=== PATIENT | female | born 1955 | race Caucasian/White ===

== ENCOUNTER → 2020-05-04 13:53 | Outpatient (CLI) | payer OTHER, SELFPAY ==
--- NOTE | ~2020-05-04 | MR_ITS ---
EXAMINATION: MR shoulder LT wo con DATE: 05/04/2020 15:04 INDICATION: Left shoulder pain and limited range of motion TECHNIQUE: Magnetic resonance imaging (MRI) of the left shoulder was performed without intravenous co ntrast. Sequences included axial PD-weighted FS FSE, coronal oblique PD-weighted FS FSE, coronal obli que T2-weighted FS FSE, sagittal PD-weighted FS FSE, and sagittal T1-weighted SE. COMPARISON: None. FINDINGS: Coracoacromial arch: The acromion undersurface is curved in morphology (type II). The coracoacromial ligament is normal. M ild to moderate acromioclavicular osteoarthritis with mild subarticular cystic change at the lateral head of the clavicle. Rotator cuff: Mild supraspinatus and infraspinatus tendinopathy. Tiny linear low signal intensity intrasubstance te ar along the anterior middle facet footplate of the conjoined portion of the supraspinatus and infras pinatus tendons which results in subtle concavity to the contour of the bursal surface. The region of increased signal is noted close seen on the axial images and is less well-defined measuring approxim ately 3 mm AP on the sagittal images. The subscapularis and teres minor tendons are normal. Normal ro tator cuff muscle bulk and signal. Biceps tendon, glenoid labrum and glenohumeral cartilage: Long head of the biceps tendon is normal. Advanced glenohumeral osteoarthritis with extensive full-th ickness cartilage loss and remodeling of significant portion of the articular surface of the medial s edda of the humeral head and central to posterior aspect of the glenoid. The latter results in approxi mately 20 degrees retroversion of the glenoid. There is diffuse degenerative tearing of the glenoid l abrum which is essentially absent inferiorly and with macerated appearance posteriorly. There are lar ge marginal osteophytes along the inferomedial aspect of the humeral head. Fluid: Small glenohumeral joint effusion with proportional extension of a small amount of fluid along the lo ng head biceps tendon sheath and deep subscapular recess. No loose osteochondral bodies. Small amount of fluid in the subacromial/subdeltoid bursa consistent with mild bursitis. Bones: No fracture or pathologic marrow replacing process. IMPRESSION: 1. Advanced left glenohumeral osteoarthritis with diffuse labral degeneration and likely reactive sma ll joint effusion. 2. Mild supraspinatus and infraspinatus tendinopathy with small mild intrasubstance tear at the footp late of the conjoined portion of the tendons. 3. Mild to moderate acromioclavicular osteoarthritis. 4. Mild subacromial/subdeltoid bursitis. Reviewed, dictated and finalized at location A. IMPRESSION: 1. Advanced left glenohumeral osteoarthritis with diffuse labral degeneration a nd likely reactive small joint effusion. 2. Mild supraspinatus and infraspinatus tendinopathy with small mild intrasubst ance tear at the footplate of the conjoined portion of the tendons. 3. Mild to moderate acromioclavicular osteoarthritis. 4. Mild subacromial/subdeltoid bursitis.
== END ==
DX: M19.012 Primary osteoarthritis, left shoulder (principal); M75.52 Bursitis of left shoulder
CPT/HCPCS: 73221

== ENCOUNTER 2025-06-16 21:36 | Emergency (ER) | payer MEDICARE, SELFPAY ==
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
[2025-06-16 21:42] VITALS: BP 155/103; PULSE 75; RESP 18; TEMP 36.9; O2SAT 100
--- OUTSIDE RECORDS SUMMARY | 2025-06-16 22:48 | XMS_ITS | Clinical Summary ---
Author Organization [facility] Address [address] [place] [address] Care Team Providers Care Behavioral Consultant Name Role Phone José Antonio Cardona DO Primary Care Provider + Suzanne Carroll MD Unavailable [phone] Maritza Lyn MD Unavailable [phone] Allergies No known active allergies Medications cetirizine (ZyrTEC) 10 mg tablet Take 1 tablet (10 mg total) by mouth daily Active naproxen (NAPROSYN) 375 mg tablet Take 220 mg by mouth every 8 (eight) hours as needed Active diphenhydrAMINE (BENADRYL) 25 mg capsule Take 1 tablet/capsule (25 mg total) by mouth nightly as needed Active evening primrose oil 500 mg capsule Take 6.2 capsules (3,100 mg total) by mouth daily Active cholecalciferol (VITAMIN D-3) 5,000 unit tablet Take 1 tablet (5,000 Units total) by mouth daily Active pyridoxine (VITAMIN B-6) 100 mg tablet Take 0.5 tablets (50 mg total) by mouth daily Active turmeric-turmeri c root extract 450-50 mg capsule Take 1 capsule by mouth daily Active buotgfdb-aswm-IT -calcium-mins 18 mg iron-400 mcg-500 mg Ca tablet Take 1 tablet by mouth daily Active triamcinolone (NASACORT) 55 mcg nasal inhaler Administer 2 sprays into each nostril daily Active famotidine (PEPCID) 10 mg tablet Take 1 tablet (10 mg total) by mouth nightly as needed Active sodium chloride (OCEAN) 0.65 % drops Administer 1 spray into affected nostril(s) as needed Active quercetin dihydrate, bulk, 100 % powder Take 1 tablet by mouth 2 (two) times a day Active vitamin E (AQUASOL E) 100 unit capsule Take 134 Units by mouth daily Active menthol 10 % cream Apply topically as needed Active vit C-s.fischer-celer y-grape sd [id number] mg capsule Take by mouth Activ e ALPRAZolam (XANAX) 0.5 mg tabletIndication s:Situational anxiety TAKE 1 TABLET BY MOUTH TWICE A DAY NEEDED FOR ANXIETY 60 tablet 5 3 Active guaiFENesin-pseu doephedrine (MUCINEX D) 600-60 mg per 12 hr tablet Take 1 tablet by mouth as needed Active lisinopril-hydro CHLOROthiazide (ZESTORETIC) 20-12.5 mg per tabletIndication s:Primary hypertension TAKE 1 TABLET BY MOUTH EVERY DAY 90 tablet 3 3 Active Additional Information Patient taking differently: 0.5 tablet, Reported on 10/18/2023 traMADoL (ULTRAM) 50 mg tabletIndication s:Chronic pain syndrome TAKE 1 TABLET (50 MG TOTAL) BY MOUTH EVERY 8 (EIGHT) HOURS NEEDED FOR PAIN. 60 tablet 1 3 Active nitroglycerin (NITROSTAT) 0.[address] 1 tablet (0.4 mg total) under the tongue every 5 (five) minutes as needed for chest pain May repeat dose q 5 min, up to 3 doses total 30 tablet 4 Active metoprolol XL (TOPROL-XL) 25 mg extended release tablet Take 1 tablet (25 mg total) by mouth daily 90 tablet 2 4 Active lisinopril-hydro CHLOROthiazide (ZESTORETIC) 20-25 mg per tablet Take 1 tablet by mouth daily 90 tablet 1 4 Active metoprolol tartrate (LOPRESSOR) 25 mg immediate release tablet Take 1 tablet (25 mg total) by mouth daily 90 tablet 1 4 Active aspirin 81 mg enteric coated tablet Take 1 tablet (81 mg total) by mouth daily 90 tablet 1 4 Active atorvastatin (LIPITOR) 40 mg tablet Take 1 tablet (40 mg total) by mouth daily 90 tablet 4 Active Active Problems Problem Noted Date Diagnosed Date IGT (impaired glucose tolerance) 12/16/2023 Abnormal stress test 10/18/2023 Mixed hyperlipidemia 10/18/2023 HAYWOOD (dyspnea on exertion) 08/12/2023 Abnormal EKG 08/12/2023 Preop cardiovascular exam 12/13/2022 Assessment & Plan (12/13/2022 2:46 PM CDT): meds reviewed and reconciled Will order a colonoscopy Morbid obesity with BMI of 40.0-44.9, adult 11/22 Assessment & Plan (03/06/2023 12:23 PM CDT): Patient has some sleep disturbance and possibly snoring not been checked for sleep apnea advised to have a sleep studies done Assessment & Plan (12/13/2022 2:46 PM CDT): Healthy diet S/P reverse total shoulder arthroplasty, right 0 03/27/2022 03/06/2023 Nontraumatic complete tear of right rotator cuff 03/15/2022 03/06/2023 Impingement syndrome of right shoulder 03/06/2023 Osteoarthritis of right acromioclavicular joint 01/23/2022 03/06/2023 Situational anxiety 08/02/2021 Overview (08/02/2021): Continue Xanax PRN Assessment & Plan (12/06/2021 5:04 PM CDT): Taking care of her mother Under a lot of stress Situational depression 08/02/2021 Overview (08/02/2021): New - recommended to see counselor/therapist. Printed list for patient of resources. Assessment & Plan (12/06/2021 5:04 PM CDT): Patient is well controlled. Continue current treatment. Iron deficiency anemia secon korin to inadequate dietary iron intake 07/12/2021 Assessment & Plan (12/06/2021 5:04 PM CDT): Check a cbc Iron level Anosmia 01/31/2021 Assessment & Plan (12/06/2021 5:04 PM CDT): Patient is well controlled. Continue current treatment. Osteoarthritis of left acromioclavicular joint 0 11/19/2019 Assessment & Plan (12/06/2021 5:06 PM CDT): Post op Sleep apnea 02/25/2019 Assessment & Plan (12/06/2021 5:05 PM CDT): Patient is well controlled. Continue current treatment. Assessment & Plan (02/25/2019 11:50 AM CDT): Patient is snoring needs to be checked for sleep apne Lipids abnormal 02/25/2019 Assessment & Plan (03/06/2023 12:23 PM CDT): Abnormal lipids patient to tolerating medications well no side effects advised to continue same and follow low-cholesterol diet Assessment & Plan (12/06/2021 5:05 PM CDT): Lipid and lft Assessment & Plan (02/25/2019 11:50 AM CDT): Abnormal lipids needs a strict good dietary control and medication. Primary osteoarthritis of left shoulder 02/18/20 19 Assessment & Plan (12/06/2021 5:05 PM CDT): Patient is well controlled. Continue current treatment. Spinal stenosis 02/17/2019 Assessment & Plan (12/06/2021 5:05 PM CDT): Patient is well controlled. Continue current treatment. HTN (hypertension) 01/02/2019 Assessment & Plan (03/06/2023 12:23 PM CDT): Longstanding history of hypertension which is under good control with the medication and salt restriction however lately patient is feeling dizzy would like to cut down lisinopril to half the dose and watch for any change in the symptoms and continue salt restricted diet Assessment & Plan (12/06/2021 5:05 PM CDT): Patient is well controlled. Continue current treatment. Assessment & Plan (08/02/2021 9:19 AM FIRST OFFICER): Stable, no changes. Continue current regimen Seeing cardiology Assessment & Plan (06/13/2020 3:07 PM CDT): Patient is well controlled. Continue current treatment. Assessment & Plan (06/01/2020 8:35 AM CDT): Patient is well controlled. Continue current treatment. Assessment & Plan (02/25/2019 11:50 AM CDT): Hypertension needs better control salt restriction more medicine watching calories Assessment & Plan (01/02/2019 11:12 AM CDT): Will recheck next week Family history of breast cancer 12/11/2011 Overview (01/02/2019): Daughter of Lydia Guerrier ( 02/11/37) who had T1aN0 triple negative in 2004 Last Assessment & Plan: mammo november Stress from parents Mom fx pelvis Assessment & Plan (12/06/2021 5:06 PM CDT): Check a mammogram GERD (gastroesophageal reflux disease) Resolved Problems Problem Noted Date Diagnosed Date Resolved Date Sinus drainage 12/13/2022 08/01/2023 Assessment & Plan (12/13/2022 2:54 PM CDT): Doxycycline 100 mg bid 10 days BMI 39.0-39.9,adult 12/06/2021 12/14/19 Assessment & Plan (12/06/2021 5:06 PM CDT): Continue healthy diet Regular exercise Iron deficiency anemia jade langley to inadequate dietary iron intake 07/12/2021 11/10/202 1 Upper respiratory infection 06/01/2020 08/02/2021 Assessment & Plan (06/13/2020 3:07 PM CDT): Feeling a lot better Still not smelling well Assessment & Plan (06/01/2020 8:34 AM CDT): covid test quarantine Abnormal EKG 01/09/2019 12/06/2021 Assessment & Plan (02/25/2019 11:50 AM CDT): LVH and left axis deviation Assessment & Plan (01/09/2019 12:31 PM CDT): Non specific changes Order a stress test See cardiology Arthritis 01/02/2019 12/06/2021 Overview (01/02/2019): both knees Annual physical exam 01/02/2019 03 020 Assessment & Plan (01/02/2019 10:51 AM CDT): Routine blood work Vertigo 01/02/2019 08/01/2023 Assessment & Plan (12/06/2021 5:06 PM CDT): Patient is well controlled. Continue current treatment. Assessment & Plan (01/09/2019 12:33 PM CDT): Still with issues May need ENT referral Assessment & Plan (01/02/2019 11:08 AM CDT): Labs ekg antivert 25 mg bid prn F/u next week Shoulder pain, left 01/02/2019 08/01/20 23 Assessment & Plan (01/09/2019 12:42 PM CDT): Awaiting results Refer to ortho Assessment & Plan (01/02/2019 11:07 AM CDT): X ray cxr Arm pain, left 01/02/2019 11/27/2019 Assessment & Plan (01/09/2019 12:34 PM CDT): Awaiting results of x ray Assessment & Plan (01/02/2019 11:07 AM CDT): X ray Class 2 severe obesity due t o excess calories with serious comorbidity and body mass index (BMI) of 39.0 to 39.9 in adult 03/18/2017 2 Immunizations Immunization Administration Dates Next Due Influenza, Quad, Adjuvantate d, Intramuscular 07/12/2021 Influenza, Quadrivalent, Hig h Dose, Preservative Free, Intrr 11/28/2022 Influenza, Unspecified 06/23/2020(Deferr ed: Patient Refused),06/23/2019(Deferred: Patient Refused) Fieldglass (J&J) SARS-CoV-2 Vaccination 11/25/2020 Moderna SARS-CoV-2 Monovalen t Vaccination (12+ YRS) 04/16/2022 Moderna Sars-cov-2 Monovalen t Booster Vaccination .25 Ml dose (12+ YRS) 04/17/2022 Pneumococcal Conjugate PCV 13 12/06/2021(Deferre d: Patient Refused) Pneumococcal Conjugate, Unspecified 12/06/2021(D eferred: Patient Refused) Pneumococcal Polysaccharide PPV23 12/06/2021 Surgical History Surgery Date Site/Laterality Comments KNEE SURGERY 09/23/2005 - 09/22/2006 Right CHOLECYSTECTOMY 09/23/1999 - 09/22/2000 TOTAL ABDOMINAL HYSTERECTOMY 09/23/1999 - 09/22/2000 DILATION AND CURETTAGE OF UTERUS 09/23/1978 - 09/22/1979 SHOULDER SURGERY 02/08/2021 TOTAL SHOULDER REPLACEMENT 03/28/2022 RIGHT REVERSE Medical History Medical History Date Comments Arm pain Hypertension Arm pain, left 01/02/2019 Spinal stenosis Allergic rhinitis Anxiety Heart disease GERD (gastroesophageal reflux disease) Sinusitis Tinnitus Degenerative arthritis of cervical spine Family History Medical History Relation Name Comments Diabetes Brother 1 Hypertension Brother 1 Hypertension Brother 2 Dementia Father Diabetes Father Heart disease Father Hypertension Father Prostate cancer Father No Known Problems Maternal Grandfather No Known Problems Maternal Grandmother Arthritis Mother Breast cancer Mother Dementia Mother Heart disease Mother Hypertension Mother Diabetes Other 1 Heart disease Other 2 Hypertension Other 3 Cancer Other 4 No Known Problems Paternal Grandfather No Known Problems Paternal Grandmother Relation Name Status Comments Brother 1 Alive Brother 2 Alive Father Alive Maternal Grandfather Maternal Grandmother Mother Alive Other 1 Other 2 Other 3 Other 4 Paternal Grandfather Paternal Grandmother Social History Tobacco Use Types Packs/Day Years Used Date Smoking Tobacco: Never Smokeless Tobacco: Never Tobacco Cessation:Counseling Given: Not Answered Alcohol Use Standard Drinks/Week Comments Yes 4 (1 standard drink = 0.6 oz pur e alcohol) OCC AUDIT-C Answer Date Recorded Q1: How often do you have a drink containing alc ohol? 2-4 times a month 10/30/2023 Q2: How many drinks containi ng alcohol do you have on a typical day when you are drinking? 1 or 2 10/30/2023 Q3: How often do you have si x or more drinks on one occasion? Never 10/30/2023 PHQ-2 Answer Date Recorded PHQ-2 Total Score (If total score is 3 or more points, staff should administer the PHQ-9) 0 12/13/2022 Personal Safety Answer Date Recorded Have you ever been in or are you currently in a harmful physical or emotional relationship or is someone making you feel afraid or unsafe? Denies 10/30/2023 Comments No Sex and Gender Information Value Date Recorded Sex Assigned at Not on file Legal Sex Female 1:54 AM FIRST OFFICER Gender Identity Not on file Sexual Orientation Not on file Obstetrics History Last Filed Vital Signs Vital Sign Reading Time Taken Comments Blood Pressure 122/78 12/16/2023 2:26 PM CDT Pulse 68 12/16/2023 2:26 PM CDT Temperature 36.7 C (98 F) 07/27/2023 6:57 PM CDT Respiratory Rate 16 12/16/2023 2:26 PM CDT Oxygen Saturation 92% 12/16/2023 2:26 PM CDT Inhaled Oxygen Concentration - - Weight 109 kg (240 lb 4.8 oz) 12/16/2023 2:26 PM CDT Height 160 cm (5' 3) 08/12/2023 1:06 PM FIRST OFFICER Body Mass Index 42.57 08/12/2023 1:06 PM FIRST OFFICER Plan of Treatment Health Maintenance Due Date Last Done Comments Colon Cancer Screening-Colonoscopy 1956 DTaP/Tdap/Td Vaccine (1 - Tdap) 1967 Hepatitis B Screening 1974 Zoster Vaccine (1 of 2) 2006 Pneumococcal vaccine 65+ (2 of 2 - PCV) 12/06/2022 12/06/2021 Depression Screening 12/14/2023 12/13/2022, 12/06/2021, 08/02/2021, Additional history exists Fall Risk Assessment 12/14/2023 12/13/2022, 12/06/2021, 01/09/2019, Additional history exists Well Visit 65+ 12/14/2023 12/13/2022, 12/06/2021 Osteoporosis Screening-Bone Density Scan 12/22/2023 12/21/2021, 12/21/2021 Breast Cancer Screening-Mammogram 10/07/2024 10/07/2023, 10/07/2023, 10/01/2022, Additional history exists Covid-19 Vaccine ( - 2024-2 6 season) 2025 04/17/2022, 04/16/2022, 11/25/2020 Influenza Vaccine (#1) 2025 11/28/2022, 2020 Hepatitis C Screening Completed 12/21/2021 Procedures Procedure Name Priority Date/Time Associated Diagnosis Comments HEPATITIS C ANTIBODY Routine 12/21/2021 10:18 AM CDT DEXA AXIAL SKELETON BONE DENSITY 1 OR MORE SITES Schedule Routine, Read Routine (OP Routine) 12/21/2021 9:56 AM CDT Asymptomatic postmenopausal status from Last 3 Months or Most Recently Relevant to Health Maintenance Results * Hepatitis C antibody (12/21/2021 10:18 AM CDT) Hep C Ab NON-REACTI VE NON-REACT MEGHANN [facility] SIGNAL TO CUT-OFF 0.01 <1.00 [facility] Comment: HCV antibody was non-reactive. There is no laboratory evidence of HCV infection. In most cases, no further action is required. However, if recent HCV exposure is suspected, a test for HCV RNA (test code 98030) is suggested. For additional information please refer to http://education.byUs.com/faq/ZOT01p1 (This link is being provided for informational/ educational purposes only.) 12/21/2021 10:1 8 AM CDT 12/21/2021 10:18 AM CDT Narrative [facility] - 12/22/2021 9:44 AM CDT FASTING:YES FASTING: YES José Antonio Cardona DO LAB MICROBIOLOGY - GENER AL ORDERABLES Final Result [facility] [address] [place] [address] * Dexa Axial Skeleton Bone Density 1 or 2 Site (12/21/2021 9:56 AM CDT) Anatomical Region Laterality Modality Body N/A Mammography 12/21/2021 10:0 1 AM CDT Narrative 12/21/2021 10:02 AM CDT EXAM DESCRIPTION: DEXA AXIAL SKELETON BONE DENSITY 1 OR MORE SITES REASON FOR STUDY: 66 year old female with given history of postmenopausal status. Charge Lpn/Model: barter.li A (S/N [id number]) CLINICAL INFORMATION: Current height: 64.5 inches Maximum height: 66 inches Weight: 230.8 pounds Risk factors: None reported COMPARISON: None available. FINDINGS: AP LUMBAR SPINE L1-L4: Total BMD is 1.161 g/cm2 T-score is 1.0 LEFT HIP: Total BMD is 0.802 g/cm2 T-score is -1.1 Femoral neck BMD is 0.754 g/cm2 T-score is -0.9 IMPRESSION: Low bone mass. Fracture risk assessment (FRAX): 10 year risk for a major osteoporotic fracture is 7.1 % 10 year risk for a hip fracture is 0.4 % The FRAX tool has not been validated in patients currently or previously treated with pharmacotherapy for osteoporosis. In such patients, clinical judgement must be exercised in interpreting FRAX scores as the fracture risk may be overestimated. REFERENCE: Bone mineral density: Normal (T-score above or = -1.0) Low bone mass (T-score between -1.0 and -2.5) replaces the previously used term osteopenia Osteoporosis (T-score = or below -2.5) Medical evaluation for secondary causes of low bone mineral density may be appropriate. FRAX is a World Health Organization validated fracture risk assessment tool that calculates a person's 10 year probability of a major osteoporosis related fracture and hip fracture. According to the National Osteoporosis Foundation guidelines, postmenopausal women and men age 50 or older with low bone mass and a 10 year probability of a major osteoporosis related fracture = or greater than 20% or a 10 year probability of a hip fracture = or greater than 3% should be considered for treatment. For further information, including treatment recommendations, please refer to the 2013 ISCD Official Positions (http://www.iscd.org) and the NOF's Clinician's Guide to Prevention and Treatment of Osteoporosis (http://www.nof.org/professionals/clinical-guidelines) THIS IS AN ELECTRONICALLY VERIFIED FINAL REPORT 12/21/2021 10:02 AM - Electronically signed by Jose Tolbert M.D. MD: Report ID: [id number] Reading Location: [place] [address] Procedure Note Jose Tolbert MD - 12/21/2021 EXAM DESCRIPTION: DEXA AXIAL SKELETON BONE DENSITY 1 OR MORE SITES REASON FOR STUDY: 66 year old female with given history of postmenopausal status. Charge Lpn/Model: barter.li A (S/N [id number]) CLINICAL INFORMATION: Current height: 64.5 inches Maximum height: 66 inches Weight: 230.8 pounds Risk factors: None reported COMPARISON: None available. FINDINGS: AP LUMBAR SPINE L1-L4: Total BMD is 1.161 g/cm2 T-score is 1.0 LEFT HIP: Total BMD is 0.802 g/cm2 T-score is -1.1 Femoral neck BMD is 0.754 g/cm2 T-score is -0.9 IMPRESSION: Low bone mass. Fracture risk assessment (FRAX): 10 year risk for a major osteoporotic fracture is 7.1 % 10 year risk for a hip fracture is 0.4 % The FRAX tool has not been validated in patients currently or previously treated with pharmacotherapy for osteoporosis. In such patients, clinical judgement must be exercised in interpreting FRAX scores as the fracturerisk may be overestimated. REFERENCE: Bone mineral density: Normal (T-score above or = -1.0) Low bone mass (T-score between -1.0 and -2.5) replaces thepreviously used term osteopenia Osteoporosis (T-score = or below -2.5) Medical evaluation for secondary causes of low bone mineral density may be appropriate. FRAX is a World Health Organization validated fracture risk assessmenttool that calculates a person's 10 year probability of a major osteoporosisrelated fracture and hip fracture. According to the National OsteoporosisFoundation guidelines, postmenopausal women and men age 50 or older with low bonemass and a 10 year probability of a major osteoporosis related fracture = or greater than 20% or a 10 year probability of a hip fracture = or greaterthan 3% should be considered for treatment. For further information, including treatment recommendations, please referto the 2013 ISCD Official Positions (http://www.iscd.org) and the NOF's Clinician's Guide to Prevention and Treatment of Osteoporosis (http://www.nof.org/professionals/clinical-guidelines) THIS IS AN ELECTRONICALLY VERIFIED FINAL REPORT 12/21/2021 10:02 AM - Electronically signed by Jose Tolbert M.D. MD: Report ID: [id number] Reading Location: [place] [address] [facility] DXA PROCEDURES Final Result from Last 3 Months or Most Recently Relevant to Health Maintenance Insurance [facility]/PPO Address: [address] [address] [place] [address] [facility]/PPO Address: [address] [address] [place] [address] [facility]/PPO Address: [address] [address] [place] [id number] MEDICARE Advance Directives For more information, please contact: [phone] * Full Code (Latest Code Status on File) Date Activated Date Inactivated Comments 10/30/2023 11:05 AM 10/30/2023 4:46 PM Care Teams Behavioral Consultant Relationship Specialty Start Date End Date José Antonio Cardona DO PCP - General Family Medicine 12/31/18 Suzanne Carroll MD [address] [place] [address] [employer] Operator Cardiovascular Disease 08/13/19 Maritza Lyn MD [address] [place] [address] Referring Physician Orthopedic Surgery 01/31/21
--- OUTSIDE RECORDS SUMMARY | 2025-06-16 22:48 | XMS_ITS | Clinical Summary ---
Author Organization [facility] Address Formerly [facility], [facility] [place] [address] Care Team Providers Care Diesel Engine Inspector Name Role Phone PowerJosé Antonio Primary Care Provider [phone] Suzanne Carroll MD Unavailable Unavailab le Allergies No known active allergies Medications Evening Erie Oil 500 MG Cap Take 1,800 mg by mouth 2 (two) times a day. 1800 mg in am 1300 mg in pm Active cholecalciferol 125 MCG (5000 UT) Tab Take 1 tablet (5,000 Units total) by mouth daily. Active Calcium Carbonate-Vit D-Min (CALTRATE 600+D PLUS MINERALS) 600-800 MG-UNIT Tab Take 600 mg by mouth every evening. 1200 MG TABLETS Active cetirizine 10 MG tablet Take 1 tablet (10 mg total) by mouth daily. Active diphenhydrAMINE 25 MG tablet Take 1 tablet (25 mg total) by mouth every 8 (eight) hours as needed for Allergies or Sleep. Always takes hs Active Cyanocobalamin 100 MCG Tab Take 100 mcg by mouth daily. Active traMADol 50 MG tablet Take 1 tablet (50 mg total) by mouth every 8 (eight) hours as needed. 0 9 Active Naproxen Sodium 220 MG Cap Take 220 mg by mouth 3 (three) times a day. Active Quercetin Dihydrate Powder Take 1 tablet by mouth 2 (two) times a day. VITAMIN C 1400 MG, QUERCETIN 500 MG Active acetaminophen CR 650 MG Tab CR 8 hr tablet Take 500 mg by mouth every 6 (six) hours as needed. Takes at least 3 times a day Active Turmeric 500 MG Cap Take 1 tablet by mouth 2 (two) times a day. Active lisinopril-hydr ochlorothiazide 20-12.5 MG tablet Take 1 tablet by mouth daily. 9 Active metoprolol tartrate 25 MG tablet Take 1 tablet (25 mg total) by mouth every evening. 9 Active ALPRAZolam 0.5 MG tablet Take 1 tablet (0.5 mg total) by mouth 2 (two) times daily as needed for Sleep or Anxiety. Active famotidine 10 MG tablet Take 1 tablet (10 mg total) by mouth nightly as needed for Heartburn. Active triamcinolone acetonide 55 MCG/ACT nasal inhaler 1 spray by Each Nostril route 2 (two) times daily as needed. nasacort Active sodium chloride (SODIUM CHLORIDE) 0.65 % Solution 1 spray by Each Nostril route as needed for Dryness. Active ferrous sulfate, 65 mg elemental, 325 (65 FE) MG tablet Take 1 tablet (325 mg total) by mouth daily with breakfast. 2 Active Multiple Vitamins-Calciu m (ONE-A-DAY WOMENS FORMULA) Tab Take 1 tablet by mouth daily. Active Pyridoxine HCl (B-6) 100 MG Tab Take 50 mg by mouth daily. Active vitamin E 100 UNIT capsule Take 134 Units by mouth daily. Active TART ESTEVEZ OR Take 1 tablet by mouth 2 (two) times a day. Active Menthol 10 % Aerosol Apply topically as needed. Roll on topicol Active pseudoephedrine -guaiFENesin ER (MUCINEX D) 60-600 MG TABLET SR 12 HR 12 hr tablet Take 1 tablet by mouth every 12 (twelve) hours. Active Active Problems Problem Noted Date Diagnosed Date Primary osteoarthritis of right knee 10/01/2023 S/P reverse total shoulder arthroplasty, right 0 03/27/2022 Nontraumatic complete tear of right rotator cuff 03/15/2022 Impingement syndrome of right shoulder Osteoarthritis of right acromioclavicular joint 01/23/2022 Primary osteoarthritis of right shoulder 021 S/P reverse total shoulder arthroplasty, left Anosmia 01/31/2021 Nontraumatic incomplete tear of left rotator cuf f 01/05/2021 Primary osteoarthritis of left knee 09/09/2020 Stress fracture of left tibi a with routine healing, subsequent encounter 09/09/2020 Upper respiratory infection 06/01/2020 Overview (02/08/2021): Last Assessment & Plan: Feeling a lot better Still not smelling well Osteoarthritis of left acromioclavicular joint 0 11/19/2019 Sleep apnea 02/25/2019 Overview (11/19/2019): Last Assessment & Plan: Patient is snoring needs to be checked for sleep apne Lipids abnormal 02/25/2019 Overview (11/19/2019): Last Assessment & Plan: Abnormal lipids needs a strict good dietary control and medication. Spinal stenosis 02/17/2019 Primary osteoarthritis of left shoulder 02/18/20 19 Abnormal EKG 01/09/2019 Overview (11/19/2019): Last Assessment & Plan: LVH and left axis deviation Arthritis 01/02/2019 Overview (02/17/2019): Overview: both knees Overview: both knees HTN (hypertension) 01/02/2019 Overview (02/17/2019): Last Assessment & Plan: Will recheck next week Vertigo 01/02/2019 Overview (02/17/2019): Last Assessment & Plan: Still with issues May need ENT referral Shoulder pain, left 01/02/2019 Overview (02/17/2019): Last Assessment & Plan: Awaiting results Refer to ortho Morbid obesity with body mass index of 45.0-49.9 in adult 03/18/2017 Family history of breast cancer 12/11/2011 Overview (02/17/2019): Overview: Daughter of Lydia Guerrier ( [birth year]/11/37) who had T1aN0 triple negative in 2004 Last Assessment & Plan: mammo november Stress from parents Mom fx pelvis Overview: Daughter of Lydia Guerrier ( [birth year]/37) who had T1aN0 triple negative in 2004 Last Assessment & Plan: mammo november Stress from parents Mom fx pelvis Immunizations Immunization Administration Dates Next Due [employer] ([employer]) COVID-19 AD26 VACCINE 0.5 ML IM SUSP 11/25/2020 Family History Medical History Relation Comments Arthritis Brother Diabetes Brother Arthritis Father Cancer Father Prostate cancer Dementia Father Diabetes Father Heart Father Heart Attack Father Heart Disease Father Hypertension Father Prostate Cancer Father Arthritis Mother Breast Cancer Mother COPD Mother Cancer Mother Inductile carcin nathaly Dementia Mother delerium or robert ntia Heart Mother Heart Attack Mother Heart Disease Mother Hypertension Mother Relation Status Comments Brother Alive Daughter Alive Father (Age 88) with robert ntia, heart problems, in fdc Mother Alive Son Alive Social History Tobacco Use Types Packs/Day Years Used Date Smoking Tobacco: Never Passive Smoke Exposure: Never Smokeless Tobacco: Never Tobacco Cessation:Counseling Given: Not Answered Comments:Never Smoked Alcohol Use Standard Drinks/Week Comments Yes 6.7 (1 standard drin k = 0.6 oz pure alcohol) Occasionally wine, beer, hard alcohol PHQ-2 Answer Date Recorded Patient Health Questionnaire-2 Score 0 11/12/2023 Comments No Sex and Gender Information Value Date Recorded Sex Assigned at Not on file Legal Sex Female 7:57 PM CDT Gender Identity Not on file Sexual Orientation Straight 02/06/2022 4: 26 PM CDT Last Filed Vital Signs Vital Sign Reading Time Taken Comments Blood Pressure 124/77 11/12/2023 9:53 AM ETCHER APPRENTICE PHOTOENGRAVING Pulse 66 11/12/2023 9:53 AM ETCHER APPRENTICE PHOTOENGRAVING Temperature 35.4 C (95.8 F) 11/12/2023 9:53 AM ETCHER APPRENTICE PHOTOENGRAVING Respiratory Rate 18 03/28/2023 10:34 AM CDT Oxygen Saturation 98% 11/12/2023 9:53 AM ETCHER APPRENTICE PHOTOENGRAVING Inhaled Oxygen Concentration - - Weight 109.3 kg (241 lb) 11/12/2023 9:53 AM ETCHER APPRENTICE PHOTOENGRAVING Height 162.6 cm (5' 4) 11/12/2023 9:53 AM ETCHER APPRENTICE PHOTOENGRAVING Body Mass Index 41.37 11/12/2023 9:53 AM ETCHER APPRENTICE PHOTOENGRAVING Plan of Treatment Health Maintenance Due Date Last Done Comments Colorectal Cancer Screening Colonoscopy (10 Years) 1956 Hepatitis C 1974 DTaP, Tdap and Td Vaccines ( 1 - Tdap) 1975 Mammogram Screening 1996 Zoster Vaccines (1 of 2) 2006 RSV Immunization or 60+ Years (1 - Risk 60-74 years 1-dose series) 2016 Pneumococcal Vaccine: 50+ Years (2 of 2 - PCV) 12/06/2022 12/06/2021 PHQ-2 (Physician [place]) 09/23/2024 11/12/2023 COVID-19 Vaccine ( - 2024-10 6 season) 2025 04/17/2022, 04/16/2022, 11/25/2020 Dexa Scan (General) Completed 12/21/2021 Meningococcal B Vaccine Aged Out No l onger eligible based on patient's age to complete this topic Meningococcal Vaccine Aged Out No nikole stas eligible based on patient's age to complete this topic RSV Immunizations Under 20 Months Aged Out No longer eligible b ased on patient's age to complete this topic Goals Goal Patient Goal Type Associated Problems Recent Progress Patient-Stated? Author Health - patient able to perform ADLs independently General No Mackenzie Fischer, RN Medical Devices Implanted Type Area Meat Team Member Device Identifier Shelf Expiration Date Model / Serial / Lot 5.0 Peripheral Screw 22mm Implanted:Qty : 1 on 02/08/2021 by Tito Lyn MD at [facility] Screw Left: Shoulder [employer] [id number] / / 5.0 Peripheral Screw 18mm Implanted:Qty : 1 on 02/08/2021 by Tito Lyn MD at [facility] Screw Left: Shoulder [employer] [id number] / / 6.5 Central Screw 40mm Implanted:Qty : 1 on 02/08/2021 by Tito Lyn MD at [facility] Screw Left: Shoulder [employer] [id number] / / 5.0 Peripheral Screw 30mm Implanted:Qty : 1 on 02/08/2021 by Tito Lyn MD at [facility] Screw Left: Shoulder [employer] [id number] / / 5.0 Peripheral Screw 46mm Implanted:Qty : 1 on 02/08/2021 by Tito Lyn MD at [facility] Screw Left: Shoulder [employer] [id number] / / Full Wedge Augment Baseplate Implanted:Qty : 1 on 02/08/2021 by Tito Lyn MD at [facility] Shoulder Components Left: Shoulder [employer] [id number] 03/04/2024 [id number] / [id number] / Retentive Reversed Insert Implanted:Qty : 1 on 02/08/2021 by Tito Lyn MD at [facility] Shoulder Components Left: Shoulder [employer] [id number] 11/25/2023 [id number] / [id number] / Standard Glenosphere Implanted:Qty : 1 on 02/08/2021 by Tito Lyn MD at [facility] Shoulder Components Left: Shoulder [employer] [id number] 11/10/2025 [id number] / [id number] / Standard Ptc Humeral Stem Implanted:Qty : 1 on 02/08/2021 by Tito Lyn MD at [facility] Shoulder Components Left: Shoulder [employer] [id number] 12/03/2024 [id number] / [id number] / Reversed Tray Implanted:Qty : 1 on 02/08/2021 by Tito Lyn MD at [facility] Shoulder Components Left: Shoulder [employer] [id number] 08/23/2025 [id number] / [id number] / Perform Reversed Augmented Glenoid Lateralized Baseplate Implanted:Qty : 1 on 03/28/2022 by Tito Lyn MD at [facility] Shoulder Components Right: Shoulder [employer] [id number] 09/07/2026 [id number] / [id number] / Tornier Perform Reversed Glenoid Eccentric Glenosphere Implanted:Qty : 1 on 03/28/2022 by Tito Lyn MD at [facility] Right: Shoulder [id number] 10/16/2026 / [id number] / [place] Central Screw Implanted:Qty : 1 on 03/28/2022 by Tito Lyn MD at [facility] Right: Shoulder [id number] / / Liza Peripheral Screw Implanted:Qty : 1 on 03/28/2022 by Tito Lyn MD at [facility] Right: Shoulder [id number] / / [place] Peripheral Screw Implanted:Qty : 1 on 03/28/2022 by Tito Lyn MD at [facility] Right: Shoulder [id number] / / [place] Peripheral Screw Implanted:Qty : 1 on 03/28/2022 by Tito Lyn MD at [facility] Right: Shoulder [id number] / / [place] Peripheral Screw Implanted:Qty : 1 on 03/28/2022 by Tito Lyn MD at [facility] Right: Shoulder [id number] / / Tornier Perform Humeral System Implanted:Qty : 1 on 03/28/2022 by Tito Lyn MD at [facility] Right: Shoulder [employer] [id number] 01/01/2027 / [id number] / Perform Humeral System - Retentive Revesed Insert Implanted:Qty : 1 on 03/28/2022 by Tito Lyn MD at [facility] Right: Shoulder [employer] [id number] 01/30/2026 [id number] / [id number] / Insurance MEDICARE PART A [facility] Advance Directives * Full Code (Latest Code Status on File) Date Activated Date Inactivated Comments 03/28/2022 2:58 PM 03/30/2022 2:49 PM * Full Code Date Activated Date Inactivated Comments 02/08/2021 10:00 AM 02/09/2021 1:11 PM Care Teams Diesel Engine Inspector Relationship Specialty Start Date End Date José Antonio Power DO PCP - General 01/29/17 Suzanne Carroll MD CARDIOVASCULAR DISEASE 01/09/21
--- OUTSIDE RECORDS SUMMARY | 2025-06-16 22:48 | XMS_ITS | Clinical Summary ---
Author Organization [facility] Address [address] [place] [address] Phone Care Team Providers Care Vp Analytics Name Role Phone José Antonio Power DO Primary Care Provider [phone] Allergies No known active allergies Medications NAPROXEN SODIUM (ALEVE ORAL) Take by mouth. prn Active EVENING PRIMROSE OIL (EVENING PRIMROSE ORAL) Take by mouth. Active PYRIDOXINE HCL (VITAMIN B-6 ORAL) Take by mouth. Activ e DIPHENHYDRAMINE HCL (BENADRYL ALLERGY ORAL) Take by mouth. 2 at night Active cetirizine (ZYRTEC) 10 mg tablet Take 10 mg by mouth daily. Active MULTIVITAMIN WITH MINERALS (ONE-A-DAY 50 PLUS ORAL) Take by mouth. Acti ve ALPRAZolam (XANAX) 0.5 mg tablet Take 0.5 mg by mouth. 0 Active lisinopril-hydr oCHLOROthiazide (ZESTORETIC) 20-12.5 mg tablet Pt takes 1/2 tablet daily 9 Active metoprolol tartrate (LOPRESSOR) 25 mg tablet TAKE ONE TABLET BY MOUTH ONCE DAILY 9 Active turmeric root extract 500 mg Capsule Take 1 Tablet by mouth daily. Active famotidine (PEPCID) 10 mg tablet Take 10 mg by mouth. Active sodium chloride (AYR) 0.65 % Drops Administer 1 [place] in each nostril. Active acetaminophen (TYLENOL) 500 mg tablet Take 500 mg by mouth. Active quercetin dihydrate, bulk, 100 % Powder Take 1 Tablet by mouth 2 times daily. Active traMADoL (ULTRAM) 50 mg tablet Take 50-100 mg by mouth every 6 hours as needed. 9 Active triamcinolone acetonide (NASACORT AQ) 55 mcg nasal spray Administer 1 [place] in each nostril 2 times daily. Active C/sourcherry/ce lery/grape seed (TART ESTEVEZ ORAL) Take 1 Tablet by mouth. Active pantoprazole (PROTONIX) 40 mg Tablet, Delayed Release (E.C.) Take 1 Tablet by mouth daily. 4 Active OTHER Plexus supplement--hun stas slim, microbiom slim Active ezetimibe (ZETIA) 10 mg tablet Take 1 Tablet by mouth daily. 4 Active Active Problems Patient Care Coordination No te Formatting of this note migh t be different from the original. Primary Care: José Antonio Power DO (Inactive) Referring Provider: No referring provider defined for this encounter. Other: Dr Asha Mendoza, [facility] Problem Noted Date Diagnosed Date Morbid obesity with BMI of 45.0-49.9, adult 02/22 Family history of breast cancer 12/11/2011 Overview (01/21/2012): Daughter of Lydia Guerrier ( [birth year]) who had T1aN0 triple negative in 2004 Assessment & Plan (08/19/2013 2:32 PM CHILD DAY CARE C[employer] WORKER): mammo november Stress from parents Mom fx pelvis Assessment & Plan (07/30/2012 3:49 PM CHILD DAY CARE C[facility] WORKER): Mom genetics negative Followed for FH ROV 1 year mammo March Assessment & Plan (01/22/2012 1:16 PM CDT): IOV [place] axillary lump - 1300mg evening primrose (up to 3000 usually) 3 injections for spinal stenosis Obese Mom will egt genetic tesitng Says diet is good aoatmeal eggs, fruits, veggie Spinal stenosis Arthritis Overview (01/22/2012): both knees Resolved Problems Problem Noted Date Diagnosed Date Resolved Date Visit for screening mammogram 01/07/2017 04/04/2020 Encounters Date Type Department Care Team Description 06/08/2025 External Device Data ST[facility] ABSTRACTION Provider, Abstract 04/27/2025 External Device Data [facility] ABSTRACTION Provider, Abstract 04/07/2025 External Device Data [facility] ABSTRACTION Provider, Abstract 04/06/2025 External Device Data [facility] ABSTRACTION Provider, Abstract 03/16/2025 External Device Data ST[facility] ABSTRACTION Provider, Abstract from Last 3 Months Family History Medical History Relation Name Comments Healthy Daughter Dementia Father Heart Disease Father Prostate Cancer Father Ovarian Cancer Maternal Aunt 1 alive age 69 Breast Cancer Maternal Aunt 2 Breast Cancer Maternal Grandmother Rhonda Gomez Breast Cancer Mother Lydia Ferreira i[place] T1a Dementia Mother Lydia Guerrier Colon Cancer Paternal Grandfather Prostate Cancer Paternal Grandfather Healthy Son Uterine Cancer Neg Hx Relation Name Status Comments Daughter Alive Father Maternal Aunt 1 Maternal Aunt 2 Maternal Grandmother Rhonda Gomez Mother Lydia Guerrier Paternal Grandfather Son Alive Social History Tobacco Use Types Packs/Day Years Used Date Smoking Tobacco: Never Smokeless Tobacco: Never Tobacco Cessation:Counseling Given: Not Answered Alcohol Use Standard Drinks/Week Comments Yes 0.8 (1 standard drin k = 0.6 oz pure alcohol) daily one glass wine with dinner Comments No Sex and Gender Information Value Date Recorded Sex Assigned at Not on file Legal Sex Female 6:08 AM CHILD [employer] CARE C[facility] WORKER Gender Identity Not on file Sexual Orientation Not on file 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 Job End 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, 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 Not on file Not on file Not on file 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 Not on file Not on file Not on f ile Last Filed Vital Signs Vital Sign Reading Time Taken Comments Blood Pressure 128/80 10/08/2024 1:06 PM CHILD [facility] C[facility] WORKER Pulse 79 03/18/2017 11:30 AM CDT Temperature 36.7 C (98.1 F) 03/18/2017 11:30 AM CDT Respiratory Rate 16 07/30/2012 3:33 PM CHILD [facility] C[facility] WORKER Oxygen Saturation - - Inhaled Oxygen Concentration - - Weight 109.8 kg (242 lb) 10/08/2024 1:06 PM CHILD [facility] C[facility] WORKER Height 165.1 cm (5' 5) 10/08/2024 1:06 PM CHILD [facility] C[facility] WORKER Body Mass Index 40.27 10/08/2024 1:06 PM CHILD [facility] C[facility] WORKER Plan of Treatment Upcoming Encounters Date Type Department Care Team (Late st Contact Info) Description 10/11/2025 12:00 PM CHILD [facility]ARE C[facility] WORKER Appointment [facility] [address] [place] [address] Stefani Subramanian, KIERST[place] [address] [place] [address] 10/11/2025 12:45 PM CHILD [employer] WORKER Office Visit [facility] [address] [place] [address] Stefani Subramanian, KIERSTEN [address] [place] [address] Health Maintenance Due Date Last Done Comments Pre-Diabetes and Diabetes Screening 1955 DTAP/TDAP/TD VACCINES (1 - Tdap) 1975 COLORECTAL SCREENING 2001 Colorectal Cancer Screening 2001 FIT-DNA Q 3 years 2001 FIT/FOBT Q 1 year 2001 Flex Sig/CT Colonography Q 5 years 2001 ZOSTER VACCINE (1 of 2) 2006 RSV VACCINE (60+ or ) (1 - Risk 60-74 years 1-dose series) 2016 PNEUMOCOCCAL VACCINE 50+ YEA RS (2 of 2 - PCV) 12/06/2022 12/06/2021 INFLUENZA VACCINE (#1) 2025 11/28/2022, 2020 COVID-19 Vaccine (3 - 2024-2 6 season) 2025 04/17/2022, 11/25/2020 BREAST CANCER SCREENING 10/08/2025 10/08/19 25, 10/07/2023, 10/01/2022, Additional history exists OSTEOPOROSIS SCREENING 12/21/2026 12/21/2021, 2021 Procedures Procedure Name Priority Date/Time Associated Diagnosis Comments MAMMO 3D MATIAS SCREEN BILAT W OR WO CAD Routine 10/08/2024 1:06 PM [facility] [facility] WORKER Visit for screening mammogram Family history of breast cancer from Last 3 Months or Most Recently Relevant to Health Maintenance Results * MAMMO 3D MATIAS SCREEN BILAT W OR WO CAD (10/08/2024 1:06 PM CHILD [facility] [facility] WORKER) Anatomical Region Laterality Modality Breast Bilateral Mammography 10/08/2024 1:06 PM CHILD [facility] WORKER Impressions 10/08/2024 1:15 PM CHILD [facility] [facility] WORKER IMPRESSION: Negative RECOMMENDATIONS: Bilateral annual screening mammogram OVERALL FINAL ASSESSMENT: BI-RADS CATEGORY 1 - Negative DICTATION LOCATION: [facility] Narrative 10/08/2024 1:15 PM CHILD [employer] [facility] C[facility] WORKER BILATERAL SCREENING DIGITAL MAMMOGRAMS WITH COMPUTER ASSISTED DIAGNOSIS WITH TOMOGRAPHY DATE: 10/08/2024 1:06 PM HISTORY: Routine screening mammogram. COMPARISON: 10/07/2023 and 10/01/2022. TECHNIQUE: A bilateral screening mammogram was performed. Low-dose full-field digital breast tomosynthesis examination was performed with 2D and 3D acquisitions. Examination is read in conjunction with computer aided detection. BREAST COMPOSITION: Scattered fibroglandular densities. FINDINGS: No new masses, suspicious calcifications or areas of asymmetry or distortion are identified. The images were reviewed using the CAD system. Stefani Subramanian HOISTER MAMMO ORDERABLES Final Re sult from Last 3 Months or Most Recently Relevant to Health Maintenance Insurance MEDICARE PART A AND B [facility] Care Teams Vp Analytics Relationship Specialty Start Date End Date José Antonio Power, [address] [address] PCP - General Family Practice 12/11/11
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
[2025-06-16] MEDS: MORPHINE SULFATE (*CRX) 4 MG/ML INJ IV PUSH (23:00)
[2025-06-16] MEDS: ONDANSETRON INJ 4 MG/2 ML VIAL IV PUSH (23:00)
[2025-06-17 00:12] LABS: Hematocrit 37.7 % (37.0-47.0); Hemoglobin 12.5 g/dL (12.0-15.0); Immature Granulocyte Percent A 0.4 % (0-0.5); Lymphocytes Absolute Auto 2.05 K/mm3 (0.9-3.2); Mean Corpuscular HGB Conc 33.2 g/dl (32-36); Mean Corpuscular Hemoglobin 31.6 pg (26-34); Mean Corpuscular Volume 95.2 fl (80-100); Nucleated Red Blood Cells Absolute Auto 0.000 K/mm3 (0.0-0.012); Nucleated Red Blood Cells Perc 0.0 % (0.0-0.2); Platelet Count Result 299 k/mm3 (150-375); Red Blood Count 3.96 M/mm3 (4.2-5.4); White Blood Count 11.7 K/mm3 (4.5-10.0)
[2025-06-17 00:15] LABS: Alanine Aminotransferase 35 U/L (6-35); Albumin Level 4.5 g/dL (3.5-5.1); Alkaline Phosphatase 98 U/L (38-126); Anion Gap 10 mmol/L (4-12); Aspartate Amino Transferase 38 U/L (14-36); Bilirubin,Total 0.5 mg/dL (0.2-1.3); Blood Urea Nitrogen 21 mg/dL (7-17); Calcium 9.5 mg/dL (8.4-10.2); Carbon Dioxide 22 mmol/L (22-30); Chloride 105 mmol/L (98-107); Estimated CRCL calculation 69 ml/min; Estimated Glomerular Filt Rate > 60; Glucose 103 mg/dL (65-110); Potassium 4.0 mmol/L (3.4-5.0); Sodium 137 mmol/L (137-145); Total Protein 7.9 g/dL (6.3-8.2)
[2025-06-17 00:23] LABS: INR 0.9; Prothrombin Time 12.7 Seconds (11.1-14.7)
[2025-06-17 00:24] LABS: Partial Thromboplastin Time 31.9 Seconds (22.3-36.8)
[2025-06-17] MEDS: SODIUM CHLORIDE 0.9% IV 1,000 ML 999 ML (00:52)
[2025-06-17] MEDS: KETOROLAC 15 MG/ML VIAL (*BKC) IV PUSH (01:56)
--- NOTE | 2025-06-17 01:59 | PC.NURSE ---
Pt walked in the hallway and feels secure while walking. Pt did not get lightheaded or dizzy when walkings. ERP aware.
[2025-06-17 02:27] VITALS: BP 128/73; PULSE 67; RESP 18; O2SAT 99
== END 2025-06-17 02:28 | disposition home or self-care (01) ==
PROVIDERS: Emergency Provider Student in an Organized Health Care Education/Training Program
DX: S70.12XA Contusion of left thigh, initial encounter (principal); S70.11XA Contusion of right thigh, initial encounter; S80.02XA Contusion of left knee, initial encounter; S80.01XA Contusion of right knee, initial encounter; S80.12XA Contusion of left lower leg, initial encounter; S80.11XA Contusion of right lower leg, initial encounter; Z96.612 Presence of left artificial shoulder joint; Z96.611 Presence of right artificial shoulder joint; M48.061 Spinal stenosis, lumbar region without neurogenic claudication; M17.0 Bilateral primary osteoarthritis of knee; V43.62XA Car passenger injured in collision with other type car in traffic accident, initial encounter
CPT/HCPCS: 36415; 71046; 72125; 73700; 80053; 82948; 85025; 85610; 85730; 96374; 96375; 99284; J1885; J2270; J2405; J7030